=== PATIENT | female | born 1990 | race Two or more races ===

== ENCOUNTER → 2018-01-14 | Day surgery (SDC) | payer OTHER | END | disposition home or self-care (01) | LOC: JRADIR 09:27 | PROVIDERS: ATTEND Obstetrics & Gynecology | PROC: BU18YZZ Fluoroscopy of Uterus and Fallopian Tubes using Other Contrast (ICD-10-PCS; principal; 2018-01-14) | DX: N97.9 Female infertility, unspecified (principal) | CPT/HCPCS: 58340; 74740-TC-FY; 76000-TC-FY ==

== ENCOUNTER 2019-06-12 13:51 | Emergency (ER) | payer OTHER ==
[2019-06-12 14:01] VITALS: BMI 24.0
--- NOTE | 2019-06-12 14:07 | PDOC ---
Rapid Medical Evaluation Time Seen by Provider: 06/12/19 13:58 Medical Evaluation: Allergies Allergy/AdvReac Type Severity Reaction Status Date / Time No Known Allergies Allergy Verified 06/12/19 14:01 Vital Signs Temp Pulse Resp BP Pulse Ox 98 F 112 H 18 108/66 98 06/12/19 13:55 06/12/19 13:55 06/12/19 13:55 06/12/19 13:55 06/12/19 13:55 06/12/19 14:06 Pt c/o: depressed crying x 1 month, drinking more alcohol daily, decreased po intke, + wt loss, denies si/hi, or hx of psychiatric d/o Pt on brief exam: alcohol on breath, crying, + eye contact, Pt ordered for: labs, urine, ivf Pt to proceed to the ED Discharge Disposition - Diagnosis Depressed - Referrals - Patient Instructions - Post Discharge Activity
[2019-06-12] MEDS ORDERED: SODIUM CHLORIDE 1,000 ML IV STA (14:08)
[2019-06-12 14:52] LABS: BASO % 0.6 % (0-2.0); HEMATOCRIT 40.7 % (32.4-45.2); HEMOGLOBIN 13.9 GM/dL (10.7-15.3); LYMPH % 37.7 % (8-40); MCH 30.5 pg (25.7-33.7); MCHC 34.2 g/dl (32.0-36.0); MEAN CELL VOLUME 89.2 fl (80-96); MEAN PLT VOLUME 7.9 fl (7.5-11.1); MONO % 4.8 % (3.8-10.2); NEUT % 56.9 % (42.8-82.8); PLATELET COUNT 314 K/MM3 (134-434); RBC 4.57 M/mm3 (3.60-5.2)
--- NOTE | 2019-06-12 15:31 | PDOC ---
History of Present Illness - General Chief Complaint: Depression Stated Complaint: DEPRESSED Time Seen by Provider: 06/12/19 13:58 History Source: Patient Exam Limitations: Clinical Condition - History of Present Illness Initial Comments: 06/12/19 15:42 Patient with no significant past medical history present with sister with complaint of 1 month history of feeling depressed, change in appetite, always feeling sad and crying for the past month and loss of interest in everything. Patient reports she has great family support and and being loud by both her parents and siblings and does not know why she feels the way she feels. Denies suicidal homicidal ideation. Patient reports she does not feel like hurting herself but feels she could not take this symptoms anymore and needs help. Patient reports she has had episodes of feeling down in the past but not this severe. Patient denies history of depression or ever taking medication for depression. Patient did not take anything for symptoms. Patient denies any stressors at home that could be causing her symptoms Is this a multiple visit Asthma Patient?: No Timing/Duration: other (1 month) Severity: moderate Past History - Past Medical History Allergies/Adverse Reactions: Allergies Allergy/AdvReac Type Severity Reaction Status Date / Time No Known Allergies Allergy Verified 06/12/19 14:01 Home Medications: Ambulatory Orders NK [No Known Home Medication] 06/12/19 COPD: No - Psycho Social/Smoking Cessation Hx Smoking History: Never smoked Hx Alcohol Use: Yes Drug/Substance Use Hx: No Review of Systems - Review of Systems Able to Perform ROS?: Yes Is the patient limited Amharic proficient: No Constitutional: Yes: See HPI, Loss of Appetite. No: Chills, Fever, Malaise, Weakness HEENTM: No: Symptoms Reported, See HPI, Eye Pain, Blurred Vision, Tearing, Recent change in vision, Double Vision, Cataracts, Ear Pain, Ocular Prothesis, Ear Discharge, Nose Pain, Nose Congestion, Tinnitus, Nose Bleeding, Hearing Loss , Throat Pain, Throat Swelling, Mouth Pain, Dental Problems, Difficulty Swallowing, Mouth Swelling, Other Respiratory: No: Symptoms reported, See HPI, Cough, Orthopnea, Shortness of Breath, SOB with Exertion, SOB at Rest, Stridor, Wheezing, Productive cough, Hemoptysis, Other Cardiac (ROS): No: Symptoms Reported, See HPI, Chest Pain, Edema, Irregular Heart Rate, Lightheadedness, Palpitations, Syncope, Chest Tightness, Other ABD/GI: No: Symptoms Reported, Nausea, Vomiting Musculoskeletal: No: Symptoms Reported Integumentary: No: Symptoms Reported Neurological: No: Symptoms reported, Headache, Dizziness Psychiatric: Yes: Depression, Frequent Crying, Sleep Pattern Change, Emotional Problems, Change in Appetite. No: Anxiety, Stressors, Mood Swings, Other ( Denies SI/HI) All Other Systems: Reviewed and Negative *Physical Exam - Vital Signs Last Vital Signs Temp Pulse Resp BP Pulse Ox 98 F 112 H 18 108/66 98 06/12/19 13:55 06/12/19 13:55 06/12/19 13:55 06/12/19 13:55 06/12/19 13:55 - Physical Exam 06/12/19 15:48 GENERAL: Well developed, well nourished. Awake and alert. No acute distress. HEENT: Normocephalic, atraumatic. PERRLA, EOMI. No conjunctival pallor. Sclera are non-icteric. Moist mucous membranes. Oropharynx is clear. NECK: Supple. Full ROM. PULMONARY: No evidence of respiratory distress. . MUSCULOSKELETAL Normal range of motion at all joints. SKIN: Warm and dry. Normal capillary refill. No rashes. No jaundice. NEUROLOGICAL: Alert, awake, appropriate. Gait is normal without ataxia. PSYCHIATRIC: Cooperative. Good eye contact. Appropriate mood ED Treatment Course - LABORATORY CBC & Chemistry Diagram: 06/12/19 14:40 06/12/19 14:40 - ADDITIONAL ORDERS Additional order review: 06/12/19 14:40 RBC 4.57 MCV 89.2 MCHC 34.2 RDW 13.0 MPV 7.9 Neutrophils % 56.9 Lymphocytes % 37.7 Monocytes % 4.8 Eosinophils % 0.0 Basophils % 0.6 - Medications Given in the ED: ED Medications Discontinued Medications Generic Name Dose Route Start Last Admin Trade Name Freq PRN Reason Stop Dose Admin Sodium Chloride 1,000 mls @ 1,000 mls/hr 06/12/19 14:08 06/12/19 14:54 Normal Saline - IV 06/12/19 15:07 1,000 mls/hr ASDIR STA Administration Medical Decision Making - Medical Decision Making 06/12/19 14:44 Patient with no significant past medical history present with sister with complaint of 1 month history of feeling depressed, change in appetite, always feeling sad and crying for the past month and loss of interest in everything. Patient reports she has great family support and and being loud by both her parents and siblings and does not know why she feels the way she feels. Denies suicidal homicidal ideation. Patient reports she does not feel like hurting herself but feels she could not take this symptoms anymore and needs help. Patient reports she has had episodes of feeling down in the past but not this severe. Patient denies history of depression or ever taking medication for depression. Patient did not take anything for symptoms. Patient denies any stressors at home that could be causing her symptoms Clinical exam unremarkable except patient feeling labile and crying throughout visit. Patient shows no sign of suicidal or homicidal symptoms. CBC chemistry labs ordered from triage. Urine toxicology lab ordered. Patient denies drug use report has been having increased alcohol intake for the past month due to depression and also having problems sleeping and has to take Benadryl to sleep. 06/12/19 15:[address] Doe who agrees patient will benefit from outpatient management for depression and patient can seek help from another hospital which has psych service if immediate help needed as this hospital does not have psych department. Plan discussed with patient and patient agrees with follow-up but reports she will go to [facility] which have psychiatric department today for help. Patient is with her sister and sister report will be taking patient to [facility] psych department for help today. Patient clinically stable and has mental capacity to make decision and stable for discharge with strict follow-up 06/12/19 15:50 U tox negative. CBC and chemistry lab unremarkable. Patient stable for discharge with psych follow-up. Patient given information on [facility] and [place] suicide line to call if feeling overwhelmed or thought of SI/HI. Discharge - Discharge Information Problems reviewed: Yes Clinical Impression/Diagnosis: Depressed Qualifiers: Depression Type: unspecified Qualified Code(s): F32.9 - Major depressive disorder, single episode, unspecified Condition: Stable Disposition: HOME - Admission No - Follow up/Referral Referrals: Reuben Oconnor, ISA [Nurse Practitioner] - - Patient Discharge Instructions Patient Printed Discharge Instructions: DI for Depression -- Adult Additional Instructions: Follow-up with referring psychologist as discussed. If symptoms worsening, you can follow-up with the hospital with psychiatry service as discussed for immediate help. It is very important that you follow-up to treat her depression symptoms. If your are feeling suicidal or feels you want to hurt someone, please call the national crisis hotline, Call for help or [facility] crisis center Call - Post Discharge Activity Work/Back to School Note: My Personal Safety Plan
[2019-06-12 15:32] LABS: ALBUMIN 4.5 g/dl (3.4-5.0); BILIRUBIN,TOTAL 0.2 mg/dL (0.2-1); CALCIUM 8.7 mg/dL (8.5-10.1); CREATININE 0.8 mg/dL (0.55-1.3); POTASSIUM 3.8 mmol/L (3.5-5.1); TOT PROT 8.3 g/dl (6.4-8.2)
[2019-06-12 15:36] LABS: HYALINE CASTS 3 /lpf (0-8); URINE APPEARANCE CLOUDY; URINE BACTERIA 155.9 /hpf (NEGATIVE); URINE BILIRUBIN NEGATIVE (NEGATIVE); URINE COLOR YELLOW; URINE GLUCOSE (UA) NEGATIVE (NEGATIVE); URINE KETONE NEGATIVE (NEGATIVE); URINE LEUK ESTERASE 2+ (NEGATIVE); URINE NITRITE NEGATIVE (NEGATIVE); URINE PROTEIN NEGATIVE (NEGATIVE); URINE RBC 2 /hpf (0-4); URINE UROBILINOGEN 0.2 mg/dL (0.2-1.0); URINE WBC 36 /hpf (0-5)
[2019-06-12 15:42] LABS: COCAINE, UR NEGATIVE ng/ml (CUTOFF=300); METHADONE, UR NEGATIVE ng/ml (CUTOFF=300); OPIATES, URI NEGATIVE ng/ml (CUTOFF=300); PHENCYCLIDINE,URINE NEGATIVE ng/ml (CUTOFF=25); URINE AMPHETAMINES NEGATIVE ng/ml (CUTOFF=500); URINE BARBITURATES NEGATIVE ng/ml (CUTOFF=200); URINE BENZODIAZEPINES NEGATIVE ng/ml (CUTOFF=200)
[2019-06-12 16:29] VITALS: BP 110/78; PULSE 98; TEMP 98.5
== END 2019-06-12 16:32 | disposition home or self-care (01) ==
LOC: JER 13:51
PROC: 3E0337Z Introduction of Electrolytic and Water Balance Substance into Peripheral Vein, Percutaneous Approach (ICD-10-PCS; principal; 2019-06-12)
DX: F31.9 Bipolar disorder, unspecified (principal)
CPT/HCPCS: 36415; 80053; 80307; 81003; 84443; 84703; 85025; 99282-25; J7030

== ENCOUNTER 2020-06-10 15:44 | Emergency (ER) | payer OTHER ==
[2020-06-10 15:47] VITALS: BP 109/65; PULSE 80; TEMP 98.4; BMI 24.6
[2020-06-10 17:12] LABS: BASO % 0.3 % (0-2.0); EOS % 0.6 % (0-4.5); HEMATOCRIT 39.4 % (32.4-45.2); HEMOGLOBIN 12.9 GM/dL (10.7-15.3); LYMPH % 22.2 % (8-40); MCH 29.7 pg (25.7-33.7); MCHC 32.8 g/dl (32.0-36.0); MEAN CELL VOLUME 90.5 fl (80-96); MEAN PLT VOLUME 8.2 fl (7.5-11.1); NEUT % 70.9 % (42.8-82.8); PLATELET COUNT 243 K/MM3 (134-434); RBC 4.35 M/mm3 (3.60-5.2); RDW 13.1 % (11.6-15.6); WHITE BLOOD COUNT 10.8 K/mm3 (4.0-10.0)
[2020-06-10 17:13] LABS: EPI CELLS 14 /uL (0-25.1); HYALINE CASTS 2 /uL (0-3.1); URINE APPEARANCE CLEAR; URINE BACTERIA 87 /uL (0-1359); URINE BILIRUBIN NEGATIVE (NEGATIVE); URINE COLOR YELLOW; URINE GLUCOSE (UA) NEGATIVE (NEGATIVE); URINE KETONE TRACE (NEGATIVE); URINE LEUK ESTERASE TRACE (NEGATIVE); URINE NITRITE NEGATIVE (NEGATIVE); URINE PROTEIN NEGATIVE (NEGATIVE); URINE RBC 5 /uL (0-23.9); URINE UROBILINOGEN 0.2 mg/dL (0.2-1.0); URINE WBC 19 /uL (0-25.8)
[2020-06-10 17:16] LABS: INR 1.05 (0.83-1.09); PROTHROMBIN TIME (PATIENT) 12.9 SEC (9.7-13.0)
[2020-06-10 17:36] LABS: POTASSIUM 3.9 mmol/L (3.5-5.1)
[2020-06-10 17:38] LABS: ALBUMIN 3.6 g/dl (3.4-5.0); CALCIUM 9.3 mg/dL (8.5-10.1)
[2020-06-10 17:39] LABS: BLOOD UREA NITROGEN 9.5 mg/dL (7-18)
[2020-06-10 17:41] LABS: CREATININE 0.7 mg/dL (0.55-1.3)
[2020-06-10 17:43] LABS: BILIRUBIN,TOTAL 0.3 mg/dL (0.2-1); TOT PROT 7.2 g/dl (6.4-8.2)
== END 2020-06-10 18:41 | disposition home or self-care (01) ==
LOC: JER 15:44
DX: O26.891 Other specified pregnancy related conditions, first trimester (principal); O23.41 Unspecified infection of urinary tract in pregnancy, first trimester
CPT/HCPCS: 36415; 76817-TC; 80053; 81003; 84702; 85025; 85610; 85730; 86850; 86900; 86901; 87086; 99284-25

== ENCOUNTER 2020-10-04 14:13 | Emergency (ER) | payer OTHER ==
[2020-10-04 14:20] VITALS: BMI 28.7
[2020-10-04 15:48] VITALS: BP 110/59; PULSE 91; TEMP 98
[2020-10-04 16:44] LABS: EPI CELLS >36 /uL (0-25.1); HYALINE CASTS 17 /uL (0-3.1); PH,URINE 6.5 (5.0-8.0); URINE APPEARANCE CLOUDY; URINE BACTERIA >9,000 /uL (0-1359); URINE BILIRUBIN NEGATIVE (NEGATIVE); URINE COLOR YELLOW; URINE GLUCOSE (UA) NEGATIVE (NEGATIVE); URINE KETONE TRACE (NEGATIVE); URINE LEUK ESTERASE TRACE (NEGATIVE); URINE NITRITE NEGATIVE (NEGATIVE); URINE PROTEIN 1+ (NEGATIVE); URINE RBC 19 /uL (0-23.9); URINE UROBILINOGEN 0.2 mg/dL (0.2-1.0); URINE WBC 174 /uL (0-25.8)
== END 2020-10-04 17:05 | disposition home or self-care (01) ==
LOC: JER 14:13
DX: O26.892 Other specified pregnancy related conditions, second trimester (principal); Z3A.22 22 weeks gestation of pregnancy
CPT/HCPCS: 81003; 87086; 99283-25

== ENCOUNTER 2020-11-21 00:32 | Emergency (ER) | payer OTHER ==
[2020-11-21 01:01] VITALS: BMI 36.1
[2020-11-21] MEDS ORDERED: diphenhydrAMINE HCL 25 MG CAPSULE (FP) PO ONE ×2 (02:05→02:13)
[2020-11-21 03:33] VITALS: BP 102/57; PULSE 76; TEMP 98
== END 2020-11-21 03:36 | disposition home or self-care (01) ==
LOC: JER 00:32
DX: R09.81 Nasal congestion (principal)
CPT/HCPCS: 87804; 93005; 93010; 99283-25; C9803; U0003; U0005

== ENCOUNTER 2021-02-11 17:30 | Inpatient (IN) | payer OTHER ==
[2021-02-11 17:57] VITALS: BMI 28.9
[2021-02-11] MEDS: ELECTROLYTE-148 SOLN 1,000 ML IV SCH (19:30)
[2021-02-11 20:12] LABS: BASO % 0.1 % (0-2.0); EOS % 0.1 % (0-4.5); HEMATOCRIT 38.2 % (32.4-45.2); HEMOGLOBIN 13.2 GM/dL (10.7-15.3); LYMPH % 15.4 % (8-40); MCH 30.7 pg (25.7-33.7); MCHC 34.5 g/dl (32.0-36.0); MEAN CELL VOLUME 89.1 fl (80-96); MEAN PLT VOLUME 9.7 fl (7.5-11.1); MONO % 5.6 % (3.8-10.2); NEUT % 78.8 % (42.8-82.8); PLATELET COUNT 207 10^3/uL (134-434); RBC 4.29 M/mm3 (3.60-5.2); WHITE BLOOD COUNT 14.5 K/mm3 (4.0-10.0)
[2021-02-11 20:19] LABS: INR 0.98 (0.83-1.09); PROTHROMBIN TIME (PATIENT) 11.9 SEC (9.7-13.0)
[2021-02-11 20:22] LABS: ACTIVATED PTT 27.1 SECONDS (25.2-36.5)
[2021-02-11 20:28] LABS: BLOOD UREA NITROGEN 7.7 mg/dL (7-18); CALCIUM 9.2 mg/dL (8.5-10.1)
[2021-02-11 20:32] LABS: CREATININE 0.7 mg/dL (0.55-1.3)
[2021-02-11] MEDS ORDERED: PROMETHAZINE HCL 25 MG/1 ML VIAL IVPB ONE (22:48)
[2021-02-11] MEDS ORDERED: BUTORPHANOL TARTRATE 1 MG/ML VIAL IVPUSH ONE ×2 (22:48→23:00)
[2021-02-11] MEDS ORDERED: BUTORPHANOL TARTRATE 2 MG/ML VIAL ONE (22:50)
[2021-02-11] MEDS ORDERED: PROMETHAZINE HCL 25 MG/1 ML VIAL ONE (22:50)
[2021-02-12] MEDS: OXYTOCIN 30 UNITS in 0.9% NS 30 UNIT/500 ML INFUS.BAG IVPB SCH (05:50)
[2021-02-12] MEDS ORDERED: BUPIVACAINE HCL/PF 0.25% (2.5MG/ML) 10 ML VIAL ONE (09:24)
[2021-02-12] MEDS ORDERED: PCA PUMP NR ONE (09:25)
[2021-02-12] MEDS ORDERED: FENTANYL/BUPIVACAINE/NS/PF - PCEA - 50 ML DISP.SYRIN EP ONE ×3 (09:26→16:36)
[2021-02-12] MEDS: FENTANYL/BUPIVACAINE/NS/PF - PCEA - 50 ML DISP.SYRIN EP SCH ×3 (09:45→16:39)
[2021-02-12] MEDS ORDERED: NALOXONE HCL 0.4 MG/ML VIAL IVPUSH PRN (10:48)
[2021-02-12] MEDS: ELECTROLYTE-148 SOLN 1,000 ML IV SCH ×3 (13:16→18:51)
[2021-02-12] MEDS ORDERED: OXYTOCIN 20 UNITS in 0.9% NS 20 UNIT/1,000 ML INFUS.BAG IV ONE ×2 (19:06→23:57)
[2021-02-12] MEDS ORDERED: LIDOCAINE HCL/EPINEPHRINE/PF 10 ML VIAL ONE (20:59)
[2021-02-12] MEDS ORDERED: SODIUM BICARBONATE 8.4% 50 MEQ/50 ML VIAL ONE (21:00)
[2021-02-12] MEDS ORDERED: CITRIC ACID/SODIUM CITRATE 30 ML UNIT-DOSE CUP PO ONE (21:54)
[2021-02-12] MEDS ORDERED: ceFAZolin SODIUM 1 GM VIAL ONE (22:01)
[2021-02-12] MEDS ORDERED: ONDANSETRON 4 MG/2 ML VIAL ONE (22:23)
[2021-02-12] MEDS ORDERED: ACETAMINOPHEN INJECTION 100 ML IVPB ONE (23:23)
[2021-02-12] MEDS ORDERED: ONDANSETRON 4 MG/2 ML VIAL IVPUSH PRN (23:26)
[2021-02-12] MEDS ORDERED: oxyCODONE HCL 5 MG TABLET PO PRN (23:26)
[2021-02-12] MEDS ORDERED: IBUPROFEN 800 MG/8 ML IJ IVPB PRN (23:26)
[2021-02-12] MEDS ORDERED: METHYLERGONOVINE MALEATE 0.2 MG/1 ML AMP IM PRN (23:26)
[2021-02-12] MEDS ORDERED: ACETAMINOPHEN 1000 MG/100 ML VIAL (NON FORMULARY) IVPB ONE (23:26)
[2021-02-12] MEDS ORDERED: SENNOSIDES/DOCUSATE COMBO (SENNA PLUS) TABLET (UD) PO PRN (23:26)
[2021-02-12] MEDS ORDERED: OXYTOCIN 20 UNITS in 0.9% NS 20 UNIT/1,000 ML INFUS.BAG IV SCH (23:30)
[2021-02-13] MEDS: OXYTOCIN 30 UNITS in 0.9% NS 30 UNIT/500 ML INFUS.BAG IVPB SCH (06:49)
[2021-02-13] MEDS: CEFAZOLIN 1 GM/D5W 1 GM/50 ML BAG IVPB SCH ×2 (08:16→15:43)
[2021-02-13 08:53] LABS: BASO % 0.2 % (0-2.0); HEMATOCRIT 29.1 % (32.4-45.2); LYMPH % 13.2 % (8-40); MCH 31.3 pg (25.7-33.7); MCHC 34.4 g/dl (32.0-36.0); MEAN CELL VOLUME 90.8 fl (80-96); MEAN PLT VOLUME 8.9 fl (7.5-11.1); MONO % 6.6 % (3.8-10.2); PLATELET COUNT 177 10^3/uL (134-434); RBC 3.21 M/mm3 (3.60-5.2); RDW 13.6 % (11.6-15.6); WHITE BLOOD COUNT 15.6 K/mm3 (4.0-10.0)
[2021-02-13] MEDS: IBUPROFEN 600 MG TABLET (FP) PO PRN ×2 (09:16→17:47)
[2021-02-13] MEDS: ACETAMINOPHEN 325 MG TABLET (FP) PO PRN ×2 (09:16→17:47)
[2021-02-13] MEDS: SIMETHICONE 80 MG TAB.CHEW (FP) PO PRN (09:16)
[2021-02-13] MEDS ORDERED: BISACODYL 10 MG SUPP.RECT RC PRN (23:26)
[2021-02-14] MEDS: CEFAZOLIN 1 GM/D5W 1 GM/50 ML BAG IVPB SCH (00:30)
[2021-02-14] MEDS: IBUPROFEN 600 MG TABLET (FP) PO PRN ×4 (00:37→20:48)
[2021-02-14] MEDS: SIMETHICONE 80 MG TAB.CHEW (FP) PO PRN ×3 (00:38→20:49)
[2021-02-14] MEDS: ACETAMINOPHEN 325 MG TABLET (FP) PO PRN ×2 (13:53→20:47)
[2021-02-15] MEDS: SIMETHICONE 80 MG TAB.CHEW (FP) PO PRN ×2 (04:06→09:54)
[2021-02-15] MEDS: ACETAMINOPHEN 325 MG TABLET (FP) PO PRN (04:07)
[2021-02-15] MEDS: IBUPROFEN 600 MG TABLET (FP) PO PRN ×2 (04:07→09:54)
[2021-02-15 08:59] LABS: BASO % 0.4 % (0-2.0); EOS % 1.5 % (0-4.5); HEMOGLOBIN 8.6 GM/dL (10.7-15.3); LYMPH % 25.3 % (8-40); MCH 30.9 pg (25.7-33.7); MCHC 34.4 g/dl (32.0-36.0); MEAN CELL VOLUME 90.1 fl (80-96); MEAN PLT VOLUME 8.2 fl (7.5-11.1); MONO % 4.4 % (3.8-10.2); NEUT % 68.4 % (42.8-82.8); PLATELET COUNT 225 10^3/uL (134-434); RBC 2.78 M/mm3 (3.60-5.2); RDW 13.9 % (11.6-15.6); WHITE BLOOD COUNT 10.5 K/mm3 (4.0-10.0)
[2021-02-15 09:58] LABS: POC NITRAZINE POS
[2021-02-15 10:24] VITALS: BP 100/67; PULSE 88; TEMP 98.7
== END 2021-02-15 12:45 | disposition home or self-care (01) | DRG 540 ==
LOC: JLDR 17:30 → J3W 02-13 00:51
PROVIDERS: ADMIT Obstetrics & Gynecology; ATTEND Obstetrics & Gynecology
PROC: 10D00Z1 Extraction of Products of Conception, Low, Open Approach (ICD-10-PCS; principal; 2021-02-12)
DX: O62.1 Secondary uterine inertia (principal); Z3A.40 40 weeks gestation of pregnancy; Z37.0 Single live birth
CPT/HCPCS: 36415; 59025; 80048; 83986-QW; 85025; 85610; 85730; 86780; 86850; 86900; 86901; 88307-TC; C9803; J0131; U0003; U0005

== ENCOUNTER 2021-04-15 20:24 | Emergency (ER) | payer OTHER ==
[2021-04-15 20:54] VITALS: TEMP 99.3; BMI 24.5
[2021-04-15] MEDS ORDERED: SODIUM CHLORIDE 1,000 ML IV STA (21:57)
[2021-04-15] MEDS ORDERED: ACETAMINOPHEN 1000 MG/100 ML VIAL (NON FORMULARY) IVPB ONE (21:57)
[2021-04-15] MEDS ORDERED: ACETAMINOPHEN INJECTION 100 ML IVPB ONE (22:07)
[2021-04-15 22:58] VITALS: BP 102/54; PULSE 81
[2021-04-15 23:12] LABS: CREATININE 0.7 mg/dL (0.55-1.3); GLUCOSE,RANDOM 85 mg/dL (74-106); SODIUM 138 mmol/L (136-145)
[2021-04-15 23:13] LABS: ALBUMIN 3.7 g/dl (3.4-5.0); ALK PHOS 94 U/L (45-117); BILIRUBIN,TOTAL 0.4 mg/dL (0.2-1); CALCIUM 8.9 mg/dL (8.5-10.1); CHLORIDE 105 mmol/L (98-107); CO2 27 mmol/L (21-32); SGOT/AST 17 U/L (15-37); SGPT/ALT 30 U/L (13-61); TOT PROT 7.9 g/dl (6.4-8.2)
[2021-04-15 23:14] LABS: ANION GAP 5 MMOL/L (8-16)
[2021-04-15 23:17] LABS: HEMATOCRIT 42.2 % (32.4-45.2); HEMOGLOBIN 14.2 GM/dL (10.7-15.3); MCH 30.1 pg (25.7-33.7); MCHC 33.8 g/dl (32.0-36.0); MEAN CELL VOLUME 89.1 fl (80-96); RBC 4.73 M/mm3 (3.60-5.2); WHITE BLOOD COUNT 9.7 K/mm3 (4.0-10.0)
[2021-04-15 23:18] LABS: EOS % 0.1 % (0-4.5); LYMPH % 19.5 % (8-40); MEAN PLT VOLUME 9.1 fl (7.5-11.1); MONO % 4.8 % (3.8-10.2); NEUT % 75.3 % (42.8-82.8); PLATELET COUNT 250 10^3/uL (134-434)
[2021-04-15 23:19] LABS: BASO % 0.3 % (0-2.0)
[2021-04-16 00:51] LABS: URINE APPEARANCE CLEAR; URINE BILIRUBIN NEGATIVE (NEGATIVE); URINE COLOR YELLOW; URINE GLUCOSE (UA) NEGATIVE (NEGATIVE); URINE KETONE NEGATIVE (NEGATIVE)
[2021-04-16 00:52] LABS: URINE LEUK ESTERASE TRACE (NEGATIVE); URINE NITRITE NEGATIVE (NEGATIVE); URINE PROTEIN NEGATIVE (NEGATIVE); URINE UROBILINOGEN 0.2 mg/dL (0.2-1.0)
[2021-04-16 01:03] LABS: EPI CELLS 13.4 /uL (0-25.1); HYALINE CASTS 0.25 /uL (0-3.1); URINE RBC 5.2 /uL (0-23.9); URINE WBC 12.9 /uL (0-25.8)
== END 2021-04-16 00:38 | disposition home or self-care (01) ==
LOC: JER 20:24
PROC: 3E0333Z Introduction of Anti-inflammatory into Peripheral Vein, Percutaneous Approach (ICD-10-PCS; principal; 2021-04-15)
PROC: 3E0337Z Introduction of Electrolytic and Water Balance Substance into Peripheral Vein, Percutaneous Approach (ICD-10-PCS; 2021-04-15)
DX: R53.1 Weakness (principal)
CPT/HCPCS: 36415; 80053; 81003; 82550; 84702; 84703; 85025; 99284-25; C9803; J0131; U0003; U0005